=== PATIENT | female | born 1995 | race Caucasian/White ===

== ENCOUNTER 2018-01-29 08:21 | Inpatient (IN) | payer BC ==
[~2018-01-29] VITALS: Ht 167.6 cm; Wt 87.2 kg
[2018-01-29 08:57] LABS: BASOPHILS # (AUTO) 0.07 x10^3/uL (0-0.1); BASOPHILS % (AUTO) 1 % (0-1); EOSINOPHILS # (AUTO) 0.15 x10^3/uL (0-0.4); EOSINOPHILS % (AUTO) 1 % (1-7); LYMPHOCYTES # (AUTO) 4.27 x10^3/uL (1-3.4); LYMPHOCYTES % (AUTO) 33 % (22-44); MD NO; MEAN CORPUSCULAR HEMOGLOBIN 31.3 pg (27.0-34.8); MEAN CORPUSCULAR HGB CONC 33.1 g/dL (32.4-35.8); MEAN CORPUSCULAR VOLUME 94.4 fL (80-100); MEAN PLATELET VOLUME 7.3 fL (7.4-10.4); MONOCYTES # (AUTO) 0.64 x10^3/uL (0.2-0.8); MONOCYTES % (AUTO) 5 % (2-9); NEUTROPHILS # (AUTO) 8.03 x10^3/uL (1.8-6.8); NEUTROPHILS % (AUTO) 61 % (42-75); PLATELET COUNT 634 x10^3/uL (130-400); RED BLOOD COUNT 4.73 x10^6/uL (3.82-5.3); RED CELL DISTRIBUTION WIDTH 12.8 % (9.6-15.2)
[2018-01-29] MEDS ORDERED: ONDANSETRON 2MG/ML, 2ML IVPush ONE (09:00)
[2018-01-29] MEDS ORDERED: SODIUM CHLORIDE 0.9% 1,000ML IVBOLUS ONE (09:00)
[2018-01-29] MEDS ORDERED: ONDANSETRON 2MG/ML, 2ML ONE (09:00)
[2018-01-29 09:01] LABS: PH, VENOUS 6.903 pH (7.320-7.420)
[2018-01-29 09:09] LABS: ALANINE AMINOTRANSFERASE 22 U/L (12-78); ALBUMIN 3.9 g/dL (3.4-5.0); ANION GAP 26 mmol/L (5-15); CALCIUM 8.6 mg/dL (8.5-10.1); CHLORIDE 101 mmol/L (98-107); CREATININE 1.38 mg/dL (0.55-1.02)
[2018-01-29 09:19] LABS: BILIRUBIN,TOTAL 0.4 mg/dL (0.2-1.0)
[2018-01-29 09:20] LABS: ALKALINE PHOSPHATASE 213 U/L (45-117); TOTAL PROTEIN 8.4 g/dL (6.4-8.2)
[2018-01-29 09:25] LABS: ACETONE, SERUM Large (80mg/dL) mg/dL (Negative)
[2018-01-29] MEDS ORDERED: NS + 40MEQ KCL 1,000 ML IV SCH (09:30)
[2018-01-29] MEDS ORDERED: REGULAR INSULIN 62.5 UNITS in SODIUM CHLORIDE 0.9% 249.375 ML IV PRN (10:00)
[2018-01-29] MEDS ORDERED: NS + 40MEQ KCL 1,000 ML IV ONE (10:14)
[2018-01-29] MEDS: D5%-0.45NACL+KCL 20MEQ 1,000 ML IV SCH ×3 (10:17→21:53)
[2018-01-29] MEDS ORDERED: LABETALOL 5MG/ML, 20ML IVPush PRN (10:30)
[2018-01-29] MEDS ORDERED: POLYETHYLENE GLYCOL 17 GM PACKET PO PRN (10:30)
[2018-01-29] MEDS ORDERED: BISACODYL 10 MG SUPP PR PRN (10:30)
[2018-01-29] MEDS ORDERED: ONDANSETRON ODT 4 MG PO PRN (10:30)
[2018-01-29] MEDS ORDERED: IBUPROFEN 600 MG TABLET PO PRN (10:30)
[2018-01-29] MEDS ORDERED: ONDANSETRON 2MG/ML, 2ML IVPush PRN (10:30)
[2018-01-29] MEDS ORDERED: LEVO100T5 PO (10:31)
[2018-01-29] MEDS ORDERED: INSU500V SQ (10:31)
[2018-01-29] MEDS ORDERED: CITA20TA9 PO (10:31)
[2018-01-29 11:41] LABS: FIO2 ROOM AIR %
[2018-01-29 11:46] LABS: ANION GAP 23 mmol/L (5-15); CALCIUM 7.1 mg/dL (8.5-10.1); CHLORIDE 112 mmol/L (98-107)
[2018-01-29] MEDS: ENOXAPARIN 40 MG/0.4 ML SQ SCH (11:55)
[2018-01-29 11:58] LABS: CREATININE 1.09 mg/dL (0.55-1.02)
[2018-01-29] MEDS ORDERED: SODIUM BICARBONATE 1 MEQ/ML, 50ML VIAL IVPush ONE ×3 (12:30→17:30)
[2018-01-29] MEDS: POTASSIUM CHLORIDE 20 MEQ in SODIUM CHLORIDE 0.45% 1,000 ML IV SCH ×3 (12:40→21:53)
[2018-01-29 13:02] LABS: HEMOGLOBIN A1C 10.3 % (4.2-6.3)
[2018-01-29] MEDS ORDERED: INSU100I28 SQ (13:02)
[2018-01-29] MEDS ORDERED: TRAZ-137 PO (13:02)
[2018-01-29 14:34] LABS: FIO2 ROOM AIR %
[2018-01-29 14:36] LABS: ANION GAP 23 mmol/L (5-15); CALCIUM 7.2 mg/dL (8.5-10.1); CHLORIDE 115 mmol/L (98-107); CREATININE 1.14 mg/dL (0.55-1.02)
[2018-01-29 14:45] LABS: MICROSCOPIC AUTO
[2018-01-29 14:46] LABS: CULTURE INDICATED? NO
[2018-01-29 17:07] LABS: FIO2 ROOM AIR %
[2018-01-29 17:13] LABS: ANION GAP 23 mmol/L (5-15); CALCIUM 6.7 mg/dL (8.5-10.1); CHLORIDE 118 mmol/L (98-107)
[2018-01-29 20:38] LABS: ANION GAP 21 mmol/L (5-15); CALCIUM 6.8 mg/dL (8.5-10.1); CHLORIDE 117 mmol/L (98-107); CREATININE 0.99 mg/dL (0.55-1.02)
[2018-01-29 20:41] LABS: RAPID INFLUENZA A Negative (Negative); RAPID INFLUENZA B Negative (Negative)
[2018-01-30 00:34] LABS: ANION GAP 16 mmol/L (5-15); CHLORIDE 116 mmol/L (98-107)
[2018-01-30] MEDS ORDERED: POTASSIUM CHLORIDE 20 MEQ TAB.ER.PRT PO ONE (01:30)
[2018-01-30 03:36] VITALS: BP 108/52
[2018-01-30 04:27] LABS: O2 FLOW RA L/min
[2018-01-30 04:35] LABS: BASOPHILS # (AUTO) 0.02 x10^3/uL (0-0.1); BASOPHILS % (AUTO) 0 % (0-1); EOSINOPHILS # (AUTO) 0.01 x10^3/uL (0-0.4); EOSINOPHILS % (AUTO) 0 % (1-7); LYMPHOCYTES # (AUTO) 1.84 x10^3/uL (1-3.4); LYMPHOCYTES % (AUTO) 18 % (22-44); MD NO; MEAN CORPUSCULAR HEMOGLOBIN 31.8 pg (27.0-34.8); MEAN CORPUSCULAR HGB CONC 34.6 g/dL (32.4-35.8); MEAN CORPUSCULAR VOLUME 91.9 fL (80-100); MEAN PLATELET VOLUME 6.4 fL (7.4-10.4); MONOCYTES # (AUTO) 0.88 x10^3/uL (0.2-0.8); MONOCYTES % (AUTO) 8 % (2-9); NEUTROPHILS # (AUTO) 7.68 x10^3/uL (1.8-6.8); NEUTROPHILS % (AUTO) 74 % (42-75); PLATELET COUNT 403 x10^3/uL (130-400); RED BLOOD COUNT 3.89 x10^6/uL (3.82-5.3); RED CELL DISTRIBUTION WIDTH 12.6 % (9.6-15.2)
[2018-01-30 04:44] LABS: CHLORIDE 116 mmol/L (98-107)
[2018-01-30 04:52] LABS: ALANINE AMINOTRANSFERASE 18 U/L (12-78); ALBUMIN 2.6 g/dL (3.4-5.0); ALKALINE PHOSPHATASE 164 U/L (45-117); ANION GAP 13 mmol/L (5-15); BILIRUBIN,TOTAL 0.3 mg/dL (0.2-1.0); CALCIUM 6.8 mg/dL (8.5-10.1); CHOLESTEROL, TOTAL 182 mg/dL (140-239); HDL CHOL % 25 % (28-40); HDL CHOLESTEROL (DIRECT) 46 mg/dL (40-60); LDL CHOLESTEROL,CALCULATED 91 mg/dL (54-169); TOTAL PROTEIN 6.2 g/dL (6.4-8.2); TRIGLYCERIDES 224 mg/dL (50-200); VLDL CHOLESTEROL 45 mg/dL (0-25)
[2018-01-30] MEDS ORDERED: POTASSIUM CHLORIDE 20 MEQ TAB.ER.PRT PO SCH (05:30)
[2018-01-30] MEDS: D5%-0.45NACL+KCL 20MEQ 1,000 ML IV SCH ×3 (05:55→19:34)
[2018-01-30] MEDS: POTASSIUM CHLORIDE 20 MEQ in SODIUM CHLORIDE 0.45% 1,000 ML IV SCH (06:30)
[2018-01-30] MEDS ORDERED: POTASSIUM PHOSPHATE 44 MEQ in SODIUM CHLORIDE 0.9% 500 ML IV ONE (07:30)
[2018-01-30] MEDS ORDERED: MAGNESIUM SULFATE PMX 4GM/100M 100 ML IV ONE (07:30)
[2018-01-30 08:38] LABS: ANION GAP 11 mmol/L (5-15); CHLORIDE 116 mmol/L (98-107); CREATININE 0.87 mg/dL (0.55-1.02)
[2018-01-30] MEDS: SENNA/DOCUSATE TABLET PO SCH (09:00)
[2018-01-30] MEDS ORDERED: AZITHROMYCIN 500 MG TABLET PO ONE (10:00)
[2018-01-30] MEDS: REGULAR INSULIN 62.5 UNITS in SODIUM CHLORIDE 0.9% 249.375 ML IV PRN (11:44)
[2018-01-30] MEDS: ENOXAPARIN 40 MG/0.4 ML SQ SCH (11:46)
[2018-01-30 12:23] LABS: ANION GAP 10 mmol/L (5-15); CALCIUM 7.1 mg/dL (8.5-10.1); CHLORIDE 117 mmol/L (98-107)
[2018-01-30 12:24] LABS: CREATININE 0.91 mg/dL (0.55-1.02)
[2018-01-30 16:29] LABS: ANION GAP 12 mmol/L (5-15); CALCIUM 7.3 mg/dL (8.5-10.1); CHLORIDE 117 mmol/L (98-107); CREATININE 0.71 mg/dL (0.55-1.02)
[2018-01-30] MEDS: ACETAMINOPHEN 325 MG TABLET PO PRN (16:30)
[2018-01-30 20:35] LABS: ANION GAP 13 mmol/L (5-15); CHLORIDE 117 mmol/L (98-107); CREATININE 0.58 mg/dL (0.55-1.02)
[2018-01-30] MEDS: TRAZODONE 50MG TABLET PO SCH (20:58)
[2018-01-31 01:04] LABS: ANION GAP 12 mmol/L (5-15); CALCIUM 6.8 mg/dL (8.5-10.1); CHLORIDE 119 mmol/L (98-107); CREATININE 0.54 mg/dL (0.55-1.02)
[2018-01-31] MEDS: D5%-0.45NACL+KCL 20MEQ 1,000 ML IV SCH ×2 (02:41→09:03)
[2018-01-31 04:00] VITALS: BP 139/90
[2018-01-31 05:15] LABS: ANION GAP 11 mmol/L (5-15); CALCIUM 6.9 mg/dL (8.5-10.1); CHLORIDE 119 mmol/L (98-107); CREATININE 0.51 mg/dL (0.55-1.02)
[2018-01-31] MEDS: LEVOTHYROXINE 100 MCG TABLET PO SCH (06:00)
[2018-01-31] MEDS ORDERED: POTASSIUM CHLORIDE 20 MEQ TAB.ER.PRT PO ONE (08:00)
[2018-01-31] MEDS: SENNA/DOCUSATE TABLET PO SCH (08:48)
[2018-01-31] MEDS: AZITHROMYCIN 250 MG TABLET PO SCH (08:49)
[2018-01-31 08:53] LABS: ANION GAP 13 mmol/L (5-15); CALCIUM 7.1 mg/dL (8.5-10.1); CHLORIDE 118 mmol/L (98-107); CREATININE 0.68 mg/dL (0.55-1.02)
[2018-01-31] MEDS: REGULAR INSULIN 62.5 UNITS in SODIUM CHLORIDE 0.9% 249.375 ML IV PRN (09:04)
[2018-01-31] MEDS ORDERED: D5%-0.45NACL+KCL 20MEQ 1,000 ML IV SCH (10:17)
[2018-01-31 12:31] LABS: ANION GAP 9 mmol/L (5-15); CALCIUM 7.9 mg/dL (8.5-10.1); CHLORIDE 117 mmol/L (98-107); CREATININE 0.64 mg/dL (0.55-1.02)
[2018-01-31] MEDS ORDERED: INSULIN LISPRO 100 UNITS/ML, PEN ONE (13:09)
[2018-01-31] MEDS: ENOXAPARIN 40 MG/0.4 ML SQ SCH (13:15)
[2018-01-31] MEDS: INSULIN GLARGINE 100 UNITS/ML, PEN SQ-INSULIN SCH ×2 (13:53→20:38)
[2018-01-31] MEDS ORDERED: INSULIN LISPRO 100 UNITS/ML, PEN SQ-INSULIN SCH (16:00)
[2018-01-31] MEDS: INSULIN LISPRO 100 UNITS/ML, PEN SQ-INSULIN SCH ×2 (17:10→20:39)
[2018-01-31 19:46] VITALS: BP 131/83
[2018-01-31] MEDS: TRAZODONE 50MG TABLET PO SCH (20:38)
[2018-01-31] MEDS ORDERED: INSULIN GLARGINE 100 UNITS/ML, PEN SQ-INSULIN SCH ×2 (21:00)
[2018-02-01 01:35] VITALS: BP 119/82
[2018-02-01 05:41] LABS: ANION GAP 7 mmol/L (5-15); CALCIUM 7.6 mg/dL (8.5-10.1); CHLORIDE 117 mmol/L (98-107)
[2018-02-01 05:42] LABS: CREATININE 0.49 mg/dL (0.55-1.02)
[2018-02-01] MEDS: LEVOTHYROXINE 100 MCG TABLET PO SCH (05:46)
[2018-02-01] MEDS: INSULIN LISPRO 100 UNITS/ML, PEN SQ-INSULIN SCH ×2 (07:00→11:51)
[2018-02-01 07:41] VITALS: BP 125/85
[2018-02-01 07:55] VITALS: BP 130/91
[2018-02-01] MEDS: INSULIN GLARGINE 100 UNITS/ML, PEN SQ-INSULIN SCH (08:24)
[2018-02-01] MEDS: SENNA/DOCUSATE TABLET PO SCH (08:55)
[2018-02-01] MEDS: AZITHROMYCIN 250 MG TABLET PO SCH (08:56)
[2018-02-01] MEDS: ACETAMINOPHEN 325 MG TABLET PO PRN (08:57)
[2018-02-01] MEDS ORDERED: POTASSIUM CHLORIDE 40 MEQ in SODIUM CHLORIDE 0.9% 500 ML IV ONE (09:30)
[2018-02-01] MEDS: ENOXAPARIN 40 MG/0.4 ML SQ SCH (12:00)
[2018-02-01] MEDS ORDERED: AZIT250T89 PO (12:47)
[2018-02-01] MEDS ORDERED: INSU100I13 SQ-INSULIN (12:47)
[2018-02-01] MEDS ORDERED: INSU100I11 SQ-INSULIN (12:47)
[2018-02-01 13:54] VITALS: BP 139/93
[2018-02-01] MEDS ORDERED: INSULIN GLARGINE 100 UNITS/ML, PEN SQ-INSULIN SCH (21:00)
== END 2018-02-01 16:00 | disposition home or self-care (01) | DRG 637 ==
LOC: ED 09:36 → CCU 09:37 → ED 10:12 → CCU 19:45 → 3NE 01-31 17:32 → DCLOUNGE 02-01 15:45
PROVIDERS: ADMIT Internal Medicine; ATTEND Internal Medicine
DX: E10.10 Type 1 diabetes mellitus with ketoacidosis without coma (principal); G93.41 Metabolic encephalopathy; D72.828 Other elevated white blood cell count; E03.9 Hypothyroidism, unspecified; E86.0 Dehydration; E87.6 Hypokalemia; F32.9 Major depressive disorder, single episode, unspecified; F43.10 Post-traumatic stress disorder, unspecified; Z80.1 Family history of malignant neoplasm of trachea, bronchus and lung; Z82.49 Family history of ischemic heart disease and other diseases of the circulatory system; Z91.14 Patient's other noncompliance with medication regimen; Z79.899 Other long term (current) drug therapy; E66.9 Obesity, unspecified; R00.0 Tachycardia, unspecified; Z68.31 Body mass index [BMI] 31.0-31.9, adult; J32.9 Chronic sinusitis, unspecified
CPT/HCPCS: 36415; 36600; 71045; 76700; 80048; 80053; 80061; 81001; 82010; 82330; 82803; 82947; 82962; 83036; 83605; 83690; 83735; 84100; 84145; 84443; 85025; 87040; 87081; 87400; 93005; 96374; 96375; 99291; G0378; J1650; J1815; J2405; J3480; Q0162; J3475; J7030; J7040; J7050